=== PATIENT | female | born 1970 | race Caucasian/White ===

== ENCOUNTER → 2016-04-06 | Outpatient (CLI) | payer MEDICARE, MEDICAID ==
[~2016-04-06] MED LIST: ULTRAM50 MG PO
== END | disposition home or self-care (01) ==
LOC: RAD 14:21
DX: M25.551 Pain in right hip (principal); Z87.898 Personal history of other specified conditions

== ENCOUNTER 2016-09-04 11:38 | Emergency (ER) | payer MEDICARE, MEDICAID ==
[~2016-09-04] VITALS: Ht 152.4 cm; Wt 63.5 kg
[2016-09-04] MEDS ORDERED: EPIPEN 2-PAK1 MG/ML IJ (11:49)
[2016-09-04] MEDS ORDERED: PREDNISONE10 MG PO (11:49)
== END 2016-09-04 14:09 | disposition home or self-care (01) ==
LOC: ED 11:38
DX: T63.441A Toxic effect of venom of bees, accidental (unintentional), initial encounter (principal); R03.0 Elevated blood-pressure reading, without diagnosis of hypertension; F17.200 Nicotine dependence, unspecified, uncomplicated; Y92.9 Unspecified place or not applicable

== ENCOUNTER → 2016-10-08 | Outpatient (CLI) | payer MEDICARE, MEDICAID ==
[~2016-10-08] MED LIST changes: +EPIPEN 2-PAK1 MG/ML IJ; +PREDNISONE10 MG PO
== END | disposition home or self-care (01) ==
LOC: RAD 11:34
DX: M25.532 Pain in left wrist (principal)

== ENCOUNTER → 2017-10-03 | Outpatient (CLI) | payer MEDICARE, MEDICAID | END | disposition home or self-care (01) | LOC: CT 12:56 | DX: K11.20 Sialoadenitis, unspecified (principal); F17.210 Nicotine dependence, cigarettes, uncomplicated ==